=== PATIENT | male | born 2000 | race Two or more races ===

== ENCOUNTER 2022-09-15 09:49 | Inpatient (IN) | payer OTHER ==
[~2022-09-15] VITALS: Ht 180.3 cm; Wt 61.2 kg
[2022-09-15] MEDS ORDERED: IV NORMAL SALINE 500 ML BAG IV ONE (10:15)
[2022-09-15] MEDS ORDERED: ONDANSETRON 4 MG/2 ML VIAL IV ONE (10:15)
[2022-09-15] MEDS ORDERED: ONDANSETRON 4 MG/2 ML VIAL ONE ×2 (10:17→17:13)
[2022-09-15 10:25] LABS: *BILIRUBIN,URIN NEGATIVE (NEGATIVE); *BLOOD, URINE NEGATIVE (NEGATIVE); *CLARITY,URINE CLEAR (CLEAR); *COLOR,URINE YELLOW (YELLOW); *KETONES,URINE 3+ (NEGATIVE); LEUKOCYTE ESTERASE ,URINE NEGATIVE (NEGATIVE); NITRITE, URINE NEGATIVE (NEGATIVE); PH,URINE 6.5 (5.0-8.0); UGLUCOSE NEGATIVE (NEGATIVE)
[2022-09-15 10:33] LABS: HEMATOCRIT 43.7 % (36.7-47.1); MEAN CORPUSCULAR HEMOGLOBIN 31.9 uug (23.8-33.4); MEAN CORPUSCULAR VOLUME 92.6 fL (73.0-96.2); PLATELET COUNT (AUTO) 178 K/uL (152-348)
[2022-09-15] MEDS ORDERED: SWABABLE VALVE TRANSFER SET EA MC ONE (10:45)
[2022-09-15] MEDS ORDERED: IOHEXOL 300MG/ML 100 ML INFUS..BTL ONE (10:45)
[2022-09-15] MEDS ORDERED: IV NORMAL SALINE 250 ML IV ONE (10:47)
[2022-09-15 10:49] LABS: BILIRUBIN,DIRECT 0.2 mg/dL (0.0-0.2); BILIRUBIN,TOTAL 0.9 mg/dL (0.2-1.0); CREATININE 0.8 mg/dL (0.6-1.3); POTASSIUM 3.6 mmol/L (3.5-5.1); TOTAL PROTEIN, SERUM 6.3 g/dL (6.4-8.2)
[2022-09-15] MEDS ORDERED: MORPHINE SULFATE 2 MG/1 ML DISP.SYRIN IV ONE ×3 (11:15→14:45)
[2022-09-15] MEDS ORDERED: MORPHINE SULFATE 2 MG/1 ML DISP.SYRIN ONE ×3 (11:27→14:50)
--- NOTE | 2022-09-15 13:21 | NUR ---
calling on gen. surgery Dr. Smith
--- NOTE | 2022-09-15 13:22 | NUR ---
is currently speaking with Dr. Smith
--- NOTE | 2022-09-15 13:25 | NUR ---
calling epic for call panel
[2022-09-15] MEDS ORDERED: PIPERACILLIN SODIUM/TAZOBACTAM 3.375 G in IV DEXTROSE 5% 50 ML IV ONE (13:30)
[2022-09-15] MEDS ORDERED: PIPERACILLIN/TAZOBACTAM/D5W 50 ML IV ONE (13:39)
[2022-09-15] MEDS ORDERED: ONDANSETRON 4 MG/2 ML VIAL IV PRN (15:00)
[2022-09-15] MEDS ORDERED: MORPHINE SULFATE 2 MG/1 ML DISP.SYRIN IV PRN (15:00)
[2022-09-15] MEDS ORDERED: MAGNESIUM HYDROXIDE 30 ML LIQUID UDC PO PRN (15:00)
[2022-09-15] MEDS ORDERED: IV NS 1000 ML 1,000 ML IV PRN (15:00)
[2022-09-15] MEDS ORDERED: ACETAMINOPHEN 325 MG TABLET PO PRN (15:00)
--- NOTE | 2022-09-15 15:10 | NUR ---
Received admission from ER via wheel chair 22y/o male, Dx. Acute Appendicitis. Awake, alert and oriented. in no apparent distress. No complain at this time. Initial vital signs taken and recorded. Routine admission care done. Plan of care initiated. Call light within reached, safety measures initiated. Patient has scheduled OR for Appendectomy under Dr. Smith at 5pm, consent signed for the procedure. instructed NPO. Pre-op checklist done. IVF NS @ 100ml/hr infusing well at left AC g.20. Needs attended
[2022-09-15 16:07] VITALS: BP 122/74; TEMP 98.3; O2SAT 98
[2022-09-15] MEDS ORDERED: LIDOCAINE 1%-EPI 1:100,000 20 ML VIAL ONE (16:21)
[2022-09-15] MEDS ORDERED: BUPIVACAINE 0.25% 30 ML VIAL ONE (16:21)
[2022-09-15] MEDS ORDERED: BACITRACIN ZINC OINT 15 GM TUBE ONE (16:22)
[2022-09-15] MEDS ORDERED: FENTANYL CITRATE 100 MCG/2 ML AMPUL ONE (16:40)
[2022-09-15] MEDS ORDERED: MAGNESIUM SULFATE/D5W 100 ML ONE (16:40)
[2022-09-15] MEDS ORDERED: MIDAZOLAM HCL 2 MG/2 ML VIAL ONE (16:41)
[2022-09-15] MEDS ORDERED: BUPIVACAINE PF 0.5% 30 ML VIAL ONE (16:41)
[2022-09-15] MEDS ORDERED: ROCURONIUM BROMIDE 50 MG/5 ML VIAL ONE (16:41)
[2022-09-15] MEDS ORDERED: FAMOTIDINE. 20 MG/2 ML VIAL IV ONE (16:41)
[2022-09-15] MEDS ORDERED: KETAMINE HCL 200 MG/20 ML VIAL ONE (16:42)
--- NOTE | 2022-09-15 16:47 | NUR ---
Brought patient to OR via stretcher assisted by OR nurse. Checked arm band, pre-op checklist done.
[2022-09-15] MEDS ORDERED: PROPOFOL 200 MG/20 ML BOTTLE ONE (17:13)
[2022-09-15] MEDS ORDERED: GLYCOPYRROLATE 0.2 MG/ML VIAL ONE (17:13)
[2022-09-15] MEDS ORDERED: DEXAMETHASONE SOD PHOSPHATE 4 MG INJ ONE (17:13)
[2022-09-15] MEDS ORDERED: LIDOCAINE-MPF 2% 5 ML VIAL ONE (17:13)
[2022-09-15] MEDS ORDERED: ESMOLOL HCL 100 MG/10 ML VIAL IV ONE (17:13)
[2022-09-15] MEDS ORDERED: CEFAZOLIN 1 G VIAL ONE (17:13)
[2022-09-15] MEDS ORDERED: METOCLOPRAMIDE HCL 10 MG/2 ML VIAL ONE (17:13)
[2022-09-15] MEDS ORDERED: FLUMAZENIL 0.5 MG/5 ML VIAL ONE (18:08)
--- NOTE | 2022-09-15 19:45 | NUR ---
RECEIVED PATIENT BACK FROM SURGERY. PATIENT IS ASLEEP BUT EASILY AROUSABLE. NO C/O PAIN OR DISCOMFORT AT THIS TIME. NO RESP. DISTRESS NOTED. DRESSINGS X3 NOTED TO ABDOMEN, C/D/I. VS WNL. AFEBRILE. HEPLOCK INTACT AND PATENT, NOTED TO LWFT AC #20 GAUGE WITH IVF INFUSING WELL. CALL LIGHT IN REACH. ALL NEEDS ATTENDED. WILL CONTINUE TO MONITOR AND ASSESS.
[2022-09-15 20:00] VITALS: BP 111/63; TEMP 98.2; O2SAT 98
[2022-09-15] MEDS: GABAPENTIN 100 MG CAPSULE PO SCH (20:41)
[2022-09-15] MEDS: ACETAMINOPHEN 325 MG TABLET PO SCH (20:41)
[2022-09-15] MEDS: CELECOXIB 200 MG CAPSULE PO SCH (20:41)
[2022-09-15] MEDS: IV LACTATED RINGERS SOLUTION 1,000 ML IV PRN (20:42)
--- NOTE | 2022-09-15 20:45 | NUR ---
PATIENT AWAKE IN BED. GIVEN ROUTINE MEDICATIONS. PATIENT STATING HE IS UNABLE TO URINATE. BLADDER SCANNER DONE AND RECEIVED 752cc OF URINE. WILL NOTIFY MD FOR FURTHER ORDERS.
[2022-09-15 21:00] VITALS: BP 108/57; TEMP 98.2; O2SAT 98
--- NOTE | 2022-09-15 21:10 | NUR ---
SPOKE WITH GRZEGORZ LE. ENCOURAGE PATIENT TO AMBULATE AND IF UNABLE TO URINATE, THEN STRAIGHT CATH PRN.
--- NOTE | 2022-09-15 21:45 | NUR ---
PATIENT STRAIGHT CATH'D. RECEIVED 850cc OF CLEAR, YELLOW URINE. PATIENT STATED HE FEELS MUCH BETTER. WILL CONTINUE TO MONITOR AND ASSESS.
[2022-09-15] MEDS: PIPERACILLIN SODIUM/TAZOBACTAM 3.375 G in IV DEXTROSE 5% 100 ML IV SCH (22:08)
[2022-09-16] MEDS: IV LACTATED RINGERS SOLUTION 1,000 ML IV PRN ×2 (04:15→12:28)
[2022-09-16] MEDS: GABAPENTIN 100 MG CAPSULE PO SCH ×2 (04:45→12:39)
[2022-09-16] MEDS: ACETAMINOPHEN 325 MG TABLET PO SCH ×2 (04:46→12:39)
[2022-09-16 05:04] VITALS: BP 95/45; TEMP 98.2; O2SAT 99
[2022-09-16] MEDS: PIPERACILLIN SODIUM/TAZOBACTAM 3.375 G in IV DEXTROSE 5% 100 ML IV SCH ×2 (05:27→14:00)
[2022-09-16 06:00] VITALS: BP 106/52; TEMP 98.2; O2SAT 99
--- NOTE | 2022-09-16 06:47 | NUR ---
PATIENT AWAKE IN BED. SLEPT WELL THROUGHOUT THE NIGHT. DRESSINGS NOTED TO ABDOMEN, C/D/I. VSS. IVF INFUSING WELL TO LEFT AC #20 GAUGE. EDUCATED PATIENT ON USE OF INCENTIVE SPIROMETER. CALL LIGHT IN REACH. PATIENT AMBULATED IN HALLWAY. WILL CONTINUE TO MONITOR AND ASSESS.
[2022-09-16 06:58] LABS: HEMATOCRIT 37.3 % (36.7-47.1); MEAN CORPUSCULAR HEMOGLOBIN 32.4 uug (23.8-33.4); PLATELET COUNT (AUTO) 165 K/uL (152-348)
--- NOTE | 2022-09-16 07:15 | NUR ---
RECEIVED PATIENT IN BED ASLEEP ON ROOM AIR WITH NO SHORTNESS OF BREATH EASILY AROUSABLE ON ROUNDS NO S/S OF PAIN OR DISCOMFORTS AT THIS TIME RESTING WELL CALL LIGHT AND PERSONAL BELONGINGS ARE WITHIN EASY REACH AT THIS TIME WILL CONTINUE TO OBSERVE.
[2022-09-16 07:16] LABS: CREATININE 0.8 mg/dL (0.6-1.3); MAGNESIUM 1.8 mg/dL (1.8-2.4); PHOSPHOROUS 4.7 mg/dL (2.5-4.9); POTASSIUM 3.7 mmol/L (3.5-5.1)
[2022-09-16] MEDS: CELECOXIB 200 MG CAPSULE PO SCH (08:34)
[2022-09-16] MEDS ORDERED: CIPR-263 PO (09:08)
[2022-09-16] MEDS ORDERED: HYDR-3972 PO (11:45)
[2022-09-16 11:58] VITALS: BP 95/53; TEMP 98.4; O2SAT 100
--- NOTE | 2022-09-16 14:04 | NUR ---
CALLED AND SPOKE WITH DR TORRES RE PATIENT IS DISCHARGED GETTING READY TO GO HOME AND HE STATED OKAY HE TOLD ME TO HAVE PATIENT COME TO SEE HIM FOR A FOLLOW UP IN HIS OFFICE AND ALSO WANTED HIM TO BE OFF WORK FOR A TOTAL OF [address] LOPEZ GAVE HIM ONE WEEK AND HE SAID NO HE WANTS HIM TO BE OFF FOR 4 WEEKS AND NOTED.
--- NOTE | 2022-09-16 14:08 | NUR ---
PATIENT BEING PREPPED FOR DISCHARGE AWAITING FOR COMPLETION OF PAPER WORK AND [employer] WORKER HELPER ZOSYN IS FOR 4 HOURS DURATION AND HE HAS CIPRO ORDERED FOR HOME.
--- NOTE | 2022-09-16 14:30 | NUR ---
CALLED AND SPOKE WITH DR TORRES HE IS AWARE THAT PATIENT IS BEING DISCHARGED AND HE STATED TO HAVE PATIENT SEE HIM NEXT SUNDAY IN HIS OFFICE AND TO EXTEND HIS DAYS OFF WORK TO 4 WEEKS AND THAT HE WILL DECIDE WHEN HE SEES PATIENT HOW MUCH EXACTLY HE NEEDS PATIENT AWARE AND STATED THAT HIS FRIEND KHANG WILL BE ABLE TO PICK HIM UP THIS EVENING.
[2022-09-16 16:17] VITALS: BP 102/59; TEMP 98.1; O2SAT 99
--- NOTE | 2022-09-16 16:57 | NUR ---
PATIENT STATED THAT HE FRIEND KHANG WILL BE HERE AFTER DINNER TO PICK HIM UP FOR DISCHARGE.
--- NOTE | 2022-09-16 18:45 | NUR ---
PATIENT DISCHARGED PICKED UP BY HIS FRIEND HALLE IN SATISFACTORY CONDITION.PATIENT WAS INSTRUCTED TO CALL DR HILTON OFFICE TO SEE HIM ON SUNDAY PHONE NUMBER PROVIDED EXCUSE FROM WORK GIVEN TO HIM PER DR TORRES INSTRUCTED TO WINDOW REPAIRER HIS MEDICINE FROM HIS OWN PHARMACY KEEP INCISION SITES CLEAN AND DRY AT ALL TIME CONTINUE WITH FULL LIQUIDS AND ADVANCE TO SOFTER CONSISTENCY TOLERATED PATIENT EXPRESSED UNDERSTANDING OF ALL HIS INSTRUCTIONS.
== END 2022-09-16 18:45 | disposition home or self-care (01) | DRG 234 ==
LOC: ER 09:49 → MEDSURG3 14:41
PROVIDERS: ADMIT Nurse Practitioner Acute Care; ATTEND Nurse Practitioner Acute Care
PROC: 0DTJ4ZZ Resection of Appendix, Percutaneous Endoscopic Approach (ICD-10-PCS; principal; 2022-09-15)
DX: K35.80 Unspecified acute appendicitis (principal); K38.1 Appendicular concretions; R33.9 Retention of urine, unspecified
CPT/HCPCS: 36415; 83690; 83735; 84100; 85025; 85610; 87040; A4663; C1758; G0378; J0690; J1100; J2250; J2270; J2405; J2543; J2765; J3010; J3475; J3490; J7040; J7120; Q9967